=== PATIENT | female | born 1950 | race Two or more races ===

== ENCOUNTER 2023-03-09 17:57 | Emergency (ER) | payer OTHER ==
[~2023-03-09] VITALS: Ht 167.6 cm; Wt 83.5 kg
[2023-03-09] MEDS ORDERED: TENORMIN50 M1 (18:14)
[2023-03-09] MEDS ORDERED: SYNTHROID88 MCG (18:15)
[2023-03-09] MEDS ORDERED: NEURONTIN300 MG (18:15)
== END 2023-03-09 21:32 | disposition home or self-care (01) ==
LOC: ER 17:57
DX: J22 Unspecified acute lower respiratory infection (principal); E03.9 Hypothyroidism, unspecified; Z20.822 Contact with and (suspected) exposure to COVID-19